=== PATIENT | male | born 1945 | race African-American/Black ===

== ENCOUNTER 2017-08-10 07:45 | Inpatient (IN) | payer OTHER, MEDICARE ==
[2017-08-10] VITALS (12 sets, daily range): BP systolic 145–170; BP diastolic 71–87
[~2017-08-10] VITALS: Ht 182.9 cm; Wt 108.9 kg
[~2017-08-10 07:45] MED LIST: NKM; NORCO 5-325 TA1 EACH ORAL
--- NOTE | 2017-08-10 07:48 | Emergency Room Report ---
History of Present Illness General Chief Complaint: Dizziness Source: Patient, EMS Present Illness HPI Patient is a 72-year-old male who presented after increased spinning sensation. Patient reported having rapid eye movements of associated dizziness which began just prior to arrival. This resolve spontaneously. The patient had associated nausea and diaphoresis. The patient reports having had no past medical history does not taking medications regularly. Patient states that he had some difficulty standing at that time.Patient was brought in by EMS. Patient denied having any chest pain or shortness of breath. Allergies: Coded Allergies: PENICILLINS (Verified Allergy, Unknown, 08/10/17) Patient History Reviewed Nursing Documentation: PMH: Agreed, PSxH: Agreed Review of Systems All Other Systems: negative except mentioned in HPI Physical Exam Vital Signs Date Time Temp Pulse Resp B/P (MAP) Pulse Ox O2 Delivery O2 Flow Rate FiO2 08/10/17 07:40 98.4 86 16 152/78 99 Room Air Sp02 EP Interpretation: reviewed, normal General Appearance: normal inspection, well appearing, no apparent distress, alert, GCS 15, non-toxic Head: atraumatic ENT: normal ENT inspection, hearing grossly normal, normal voice Neck: normal inspection, full range of motion, supple, no bony tend Respiratory: normal inspection, lungs clear, normal breath sounds, no respiratory distress, no retraction, no wheezing Cardiovascular #1: regular rate, rhythm, no edema Gastrointestinal: normal inspection, normal bowel sounds, non tender, soft, no guarding, no hernia Genitourinary: no CVA tenderness Musculoskeletal: normal inspection, back normal, normal range of motion Neurologic: normal inspection, alert, oriented x3, responsive, filters assembler III-XII nml as tested, motor strength/tone normal, DTRs symmetric, speech normal Psychiatric: normal inspection, judgement/insight normal, mood/affect normal Skin: normal inspection, normal color, no rash Medical Decision Making Diagnostic Impression: Primary Impression: Dizziness of unknown cause Additional Impression: TIA (transient ischemic attack) ER Course Patient presented for dizziness. Differential diagnosis included was not limited to pulmonary embolism, myocardial infarction, orthostatic hypotension, vertigo, vertebral basilar ischemia among others.Because of complexity of patient's case laboratory testing and imaging studies were ordered.I laboratory testing was unremarkable. Patient noted have a recurrent dizziness. Dr. Hewitt was contacted for for inpatient management. EKG interpretation normal sinus rhythm with a rate of [address] or T wave changes. Repeat EKG was unchanged.CT of head read by radiologist showed no evidence of CVA or acute hemorrhage Labs Test 08/10/17 08:10 08/10/17 10:50 White Blood Count 7.5 K/UL (4.8-10.8) Red Blood Count 5.07 M/UL (4.70-6.10) Hemoglobin 13.9 G/DL (14.2-18.0) Hematocrit 43.6 % (42.0-52.0) Mean Corpuscular Volume 86 FL (80-99) Mean Corpuscular Hemoglobin 27.5 PG (27.0-31.0) Mean Corpuscular Hemoglobin Concent 32.0 G/DL (32.0-36.0) Red Cell Distribution Width 11.8 % (11.6-14.8) Platelet Count 267 K/UL (150-450) Mean Platelet Volume 7.1 FL (6.5-10.1) Neutrophils (%) (Auto) 67.2 % (45.0-75.0) Lymphocytes (%) (Auto) 22.8 % (20.0-45.0) Monocytes (%) (Auto) 8.1 % (1.0-10.0) Eosinophils (%) (Auto) 1.1 % (0.0-3.0) Basophils (%) (Auto) 0.9 % (0.0-2.0) D-Dimer 336 ng/mL (<500) Sodium Level 139 mEQ/L (135-145) Potassium Level 4.0 mEQ/L (3.4-4.9) Chloride Level 101 mEQ/L (98-107) Carbon Dioxide Level 27 mEQ/L (20-30) Anion Gap 11 (5-15) Blood Urea Nitrogen 19 mg/dL (7-23) Creatinine 0.9 mg/dL (0.7-1.2) Estimat Glomerular Filtration Rate > 60 mL/min (>60) Glucose Level 179 mg/dL (74-106) Calcium Level 9.1 mg/dL (8.6-10.2) Total Bilirubin 0.4 mg/dL (0.0-1.2) Aspartate Amino Transf (AST/SGOT) 14 U/L (5-40) Alanine Aminotransferase (ALT/SGPT) 15 U/L (3-41) Alkaline Phosphatase 53 U/L (40-129) Troponin I < 0.30 ng/mL (<=0.30) Pro-B-Type Natriuretic Peptide 19 pg/mL (0-125) Total Protein 6.8 g/dL (6.6-8.7) Albumin 4.0 g/dL (3.5-5.2) Globulin 2.8 g/dL Albumin/Globulin Ratio 1.4 (1.0-2.7) Urine Color Pale yellow Urine Appearance Clear Urine pH 6 (4.5-8.0) Urine Specific [place] 1.020 (1.005-1.035) Urine Protein Negative (NEGATIVE) Urine Glucose (UA) Negative (NEGATIVE) Urine Ketones Negative (NEGATIVE) Urine Occult Blood 1+ (NEGATIVE) Urine Nitrite Negative (NEGATIVE) Urine Bilirubin Negative (NEGATIVE) Urine Urobilinogen Normal MG/DL (0.0-1.0) Urine Leukocyte Esterase Negative (NEGATIVE) Urine RBC 2-4 /HPF (0 - 0) Urine WBC 0-2 /HPF (0 - 0) Urine Squamous Epithelial Cells Occasional /LPF Urine Bacteria None /HPF (NONE) Urine Mucus Few /LPF (NONE/OCC) EKG Diagnostic Results Rate: normal - 76 Rhythm: NSR ST Segments: no acute changes Last Vital Signs Date Time Temp Pulse Resp B/P (MAP) Pulse Ox O2 Delivery O2 Flow Rate FiO2 08/10/17 07:40 98.4 86 16 152/78 99 Room Air Status: unchanged Disposition: ADMITTED INPATIENT Condition: Serious Pablito Hodgson Aug 10, 2017 07:48
[2017-08-10] MEDS ORDERED: Meclizine 25mg tab ORAL ONE (08:15)
[2017-08-10 08:39] LABS: BASOPHILS % (AUTO) 0.9 % (0.0-2.0); EOSINOPHILS % (AUTO) 1.1 % (0.0-3.0); LYMPHOCYTES % (AUTO) 22.8 % (20.0-45.0); MEAN CORPUSCULAR HEMOGLOBIN 27.5 PG (27.0-31.0); MEAN CORPUSCULAR VOLUME 86 FL (80-99); MEAN PLATELET VOLUME 7.1 FL (6.5-10.1); MONOCYTES % (AUTO) 8.1 % (1.0-10.0); NEUTROPHILS % (AUTO) 67.2 % (45.0-75.0); PLATELET COUNT 267 K/UL (150-450); RED BLOOD COUNT 5.07 M/UL (4.70-6.10); RED CELL DISTRIBUTION WIDTH 11.8 % (11.6-14.8); WHITE BLOOD COUNT 7.5 K/UL (4.8-10.8)
[2017-08-10 08:46] LABS: ALANINE AMINOTRANSFERASE 15 U/L (3-41); ALBUMIN/GLOBULIN RATIO 1.4 (1.0-2.7); ANION GAP 11 (5-15); ASPARTATE AMINO TRANSFERASE 14 U/L (5-40); CALCIUM 9.1 mg/dL (8.6-10.2); CARBON DIOXIDE 27 mEQ/L (20-30); CHLORIDE 101 mEQ/L (98-107); CREATININE 0.9 mg/dL (0.7-1.2); GLOMERULAR FILTRATION RATE > 60 mL/min (>60); HEMOLYSIS 4; SODIUM 139 mEQ/L (135-145); TOTAL PROTEIN 6.8 g/dL (6.6-8.7); TROPONIN I < 0.30 ng/mL (<=0.30)
--- NOTE | 2017-08-10 09:39 | Diagnostic Imaging Report ---
Indications: Is Technique: Spiral acquisitions obtained through the brain. Angled axial and coronal 5 x 5 mm slices were reconstructed. Total dose length product 141 mGycm. CTDI vol(s) 70 mGy. Dose reduction achieved using automated exposure control Comparison: None Findings: There is mild age-related enlargement of ventricles and extra axial CSF normal velásquez-white differentiation. No acute hemorrhage or edema. No mass effect or midline shift. Unusually extensive dural calcifications are seen in the forehead. The sinuses are clear. The calvarium is intact. Impression: Mild age-related changes. Negative for acute intracranial bleed or mass effect Report previously discussed with Dr. Hodgson by phone at [address] scanner at [facility] is accredited by the [employer] and the scans are performed using protocols designed to limit radiation exposure to as low as reasonably achievable to attain images of sufficient resolution adequate for diagnostic evaluation.
[2017-08-10 11:13] LABS: APPEARANCE,URINE CLEAR; KETONES,URINE NEGATIVE (NEGATIVE); LEUKOCYTE ESTERASE ,URINE NEGATIVE (NEGATIVE); NITRITE,URINE NEGATIVE (NEGATIVE); PH,URINE 6 (4.5-8.0); PROTEIN,URINE NEGATIVE (NEGATIVE); UROBILINOGEN,URINE NORMAL MG/DL (0.0-1.0)
[2017-08-10 11:25] LABS: MUCUS,URINE FEW /LPF (NONE/OCC); SQUAMOUS EPITHELIAL CELL,UR OCCASIONAL /LPF (NONE/OCC); WBC,URINE 0-2 /HPF (0 - 0)
[2017-08-10] MEDS ORDERED: Milk of Magnesia 30ml Ud ORAL PRN (11:45)
[2017-08-10] MEDS ORDERED: Norco 5mg/325mg tab ORAL PRN (11:45)
[2017-08-10] MEDS ORDERED: Mylanta II UD 30ml ORAL PRN (11:45)
[2017-08-10] MEDS ORDERED: Miralax 17gm pkt ORAL PRN (11:45)
[2017-08-10] MEDS: Aspirin Baby 81mg ORAL SCH (15:29)
--- NOTE | 2017-08-10 16:14 | Cardiology Report ---
APPROVED REPORT EXAM: Two-dimensional and M-mode echocardiogram with Doppler and color Doppler. INDICATION Dizziness and Vertigo M-Mode DIMENSIONS IVSd1.3 (0.7-1.1cm)Left Atrium (MM)4.0 (1.6-4.0cm) LVDd5.2 (3.5-5.6cm)Aortic Root2.8 (2.0-3.7cm) PWd1.1 (0.7-1.1cm)Aortic Cusp Exc.2.3 (1.5-2.0cm) LVDs2.4 (2.5-4.0cm) PWs1.8 cm Normal left ventricular chamber size, systolic function and wall motion. Left ventricular ejection fraction estimated to be 55 %. Mild left ventricular hypertrophy. Anterior Echo-free space, may be due to pericardial fat or effusion. All other cardiac chamber sizes are within normal limits. Mild focal aortic valve sclerosis with adequate cusp excursion. Mildly thickened mitral valve leaflets with normal excursion. Mild mitral annulus and aortic root calcification. Normal pulmonic valve structure. Normal tricuspid valve structure. IVC dilated at 1.8 cm with physiological collapse. A color flow and spectral Doppler study was performed and revealed: No aortic insufficiency. No mitral regurgitation. Mitral diastolic velocities suggest reduced left ventricular relaxation c/w diastolic dysfunction (Grade I). No tricuspid regurgitation. Tricuspid systolic velocities suggests peak right ventricular systolic pressure of 17 mmHg. No pulmonic regurgitation present.
--- NOTE | 2017-08-10 16:29 | History and Physical ---
History of Present Illness General Date patient seen: Aug 10, 2017 Time patient seen: 16:29 Reason for Hospitalization: Dizziness Present Illness HPI 72y/o female with pmh of BPH s/p TURP, osteoarthritis who presents with dizziness. Pt states this morning he got out of bed and then when he got back in bed he noted sensation of dizziness described as room spinning with associated blurry vision, nausea and diaphoresis. He had another episode a few min later. Pt states he had similar episodes a couple years ago but was transient and not as severe as this one. Paramedics were called and pt was brought to ER. Pt denies f/c, emesis, chest pain, SOB, syncope, LOC, abd pain, dysuria. No recent travel, trauma or sick contacts. Pt notes increased stress recently because of personal issues and knee pain. Knee pain is improving. In ED, CT head was neg. Given meclizine 25mg. Allergies: Coded Allergies: PENICILLINS (Verified Allergy, Unknown, 08/10/17) Medication History Scheduled No Known Medications* (NKM - No Known Medications*), 0 ., (Reported) Scheduled PRN Hydrocodone Bit/Acetaminophen 5-325* ([place] 5-325*), 1 TAB ORAL Q6H PRN for For Pain Patient History History Provided By: Patient, Family Member, Significant Other, Medical Record , PMD Healthcare decision maker Resuscitation status Full Code Advanced Directive on File No Past Medical/Surgical History Past Medical/Surgical History: (1) Osteoarthritis (2) BPH (benign prostatic hyperplasia) (3) S/P TURP Family History Family History: Patient reports no known family medical history. Social History Social History: (1) No significant social history Review of Systems Constitutional: Reports: sweats Eye: Reports: blurred vision ENT: Reports: no symptoms Respiratory: Reports: no symptoms Cardiovascular: Reports: no symptoms Gastrointestinal: Reports: nausea Genitourinary: Reports: no symptoms Musculoskeletal: Reports: joint pain Skin: Reports: change in hair/nails Physical Exam Physical Exam Narrative General: alert, cooperative, no distress, appears stated age Head: normocephalic, without obvious abnormality, atraumatic Eyes: conjunctivae/corneas clear. PERRL, EOM's intact Throat: lips, mucosa, and tongue normal. MMM Neck: supple, symmetrical, trachea midline, and no JVD Lungs: clear to auscultation bilaterally Heart: regular rate and rhythm, S1, S2 normal, no murmur, click, rub or gallop Abdomen: soft, non-tender, non-distended, bowel sounds normal; no masses or organomegaly Extremities: extremities normal, atraumatic, no cyanosis or edema Pulses: 2+ and symmetric Skin: skin color, texture, turgor normal; no rashes or lesions Neurologic: grossly normal, no focal deficits Last 24 Hour Vital Signs Date Time Temp Pulse Resp B/P (MAP) Pulse Ox O2 Delivery O2 Flow Rate FiO2 08/10/17 15:35 99.9 80 18 159/87 98 Room Air 08/10/17 15:10 79 08/10/17 14:15 98.4 73 16 159/78 97 Room Air 08/10/17 13:57 98.4 73 16 165/79 97 Room Air 08/10/17 12:17 82 20 166/83 98 Room Air 08/10/17 11:35 98.6 67 17 153/77 97 Room Air 08/10/17 10:06 98.4 68 17 163/74 97 Room Air 08/10/17 09:38 98.4 82 17 170/74 98 Room Air 08/10/17 09:05 98.4 80 16 162/84 100 Room Air 08/10/17 09:00 98.4 81 16 166/84 99 Room Air 08/10/17 08:55 98.4 77 17 148/71 99 Room Air 08/10/17 07:45 98.4 85 16 152/78 99 Room Air 08/10/17 07:40 98.4 86 16 152/78 99 Room Air Intake and Output 08/10/17 08/11/17 19:00 07:00 Intake Total 0 ml Output Total 380 ml Balance -380 ml Intake Oral 0 ml Output Urine Total 380 ml # Voids 2 Laboratory Tests Test 08/10/17 08:10 08/10/17 10:50 White Blood Count 7.5 K/UL (4.8-10.8) Red Blood Count 5.07 M/UL (4.70-6.10) Hemoglobin 13.9 G/DL (14.2-18.0) L Hematocrit 43.6 % (42.0-52.0) Mean Corpuscular Volume 86 FL (80-99) Mean Corpuscular Hemoglobin 27.5 PG (27.0-31.0) Mean Corpuscular Hemoglobin Concent 32.0 G/DL (32.0-36.0) Red Cell Distribution Width 11.8 % (11.6-14.8) Platelet Count 267 K/UL (150-450) Mean Platelet Volume 7.1 FL (6.5-10.1) Neutrophils (%) (Auto) 67.2 % (45.0-75.0) Lymphocytes (%) (Auto) 22.8 % (20.0-45.0) Monocytes (%) (Auto) 8.1 % (1.0-10.0) Eosinophils (%) (Auto) 1.1 % (0.0-3.0) Basophils (%) (Auto) 0.9 % (0.0-2.0) D-Dimer 336 ng/mL (<500) Sodium Level 139 mEQ/L (135-145) Potassium Level 4.0 mEQ/L (3.4-4.9) Chloride Level 101 mEQ/L (98-107) Carbon Dioxide Level 27 mEQ/L (20-30) Anion Gap 11 (5-15) Blood Urea Nitrogen 19 mg/dL (7-23) Creatinine 0.9 mg/dL (0.7-1.2) Estimat Glomerular Filtration Rate > 60 mL/min (>60) Glucose Level 179 mg/dL (74-106) H Calcium Level 9.1 mg/dL (8.6-10.2) Total Bilirubin 0.4 mg/dL (0.0-1.2) Aspartate Amino Transf (AST/SGOT) 14 U/L (5-40) Alanine Aminotransferase (ALT/SGPT) 15 U/L (3-41) Alkaline Phosphatase 53 U/L (40-129) Troponin I < 0.30 ng/mL (<=0.30) Pro-B-Type Natriuretic Peptide 19 pg/mL (0-125) Total Protein 6.8 g/dL (6.6-8.7) Albumin 4.0 g/dL (3.5-5.2) Globulin 2.8 g/dL Albumin/Globulin Ratio 1.4 (1.0-2.7) Urine Color Pale yellow Urine Appearance Clear Urine pH 6 (4.5-8.0) Urine Specific [place] 1.020 (1.005-1.035) Urine Protein Negative (NEGATIVE) Urine Glucose (UA) Negative (NEGATIVE) Urine Ketones Negative (NEGATIVE) Urine Occult Blood 1+ (NEGATIVE) H Urine Nitrite Negative (NEGATIVE) Urine Bilirubin Negative (NEGATIVE) Urine Urobilinogen Normal MG/DL (0.0-1.0) Urine Leukocyte Esterase Negative (NEGATIVE) Urine RBC 2-4 /HPF (0 - 0) H Urine WBC 0-2 /HPF (0 - 0) Urine Squamous Epithelial Cells Occasional /LPF Urine Bacteria None /HPF (NONE) Urine Mucus Few /LPF (NONE/OCC) H Height (Feet): 6 Height (Inches): 0.00 Weight (Pounds): 240 Medications Current Medications Medications (Trade) Dose Ordered Sig/Alis Route PRN Reason Start Time Stop Time Status Last Admin Dose Admin Acetaminophen (Tylenol) 650 mg Q4H PRN ORAL Mild Pain (Pain Scale 1-3) 08/10/17 11:45 09/09/17 11:44 Acetaminophen/ Hydrocodone Bitart ([place] 5/325) 1 tab Q6H PRN ORAL pain 4-10 08/10/17 11:45 08/17/17 11:44 Al Hydroxide/Mg Hydroxide (Mylanta II) 30 ml Q6H PRN ORAL dyspepsia 08/10/17 11:45 09/09/17 11:44 Aspirin (ASA) 81 mg DAILY ORAL 08/10/17 15:00 09/09/17 14:59 08/10/17 15:29 Bisacodyl (Dulcolax) 10 mg DAILYPRN PRN RECTAL Constipation 08/10/17 11:45 09/09/17 11:44 Dextrose (Dextrose 50%) STAT PRN IV Hypoglycemia 08/10/17 11:45 09/09/17 11:44 Diphenhydramine HCl (Benadryl) 25 mg Q6H PRN ORAL Itching/Pruritis 08/10/17 11:45 09/09/17 11:44 Docusate Sodium (Colace) 100 mg EVERY 12 HOURS ORAL 08/10/17 21:00 09/09/17 20:59 Heparin Sodium (Porcine) (Heparin 5000 units/ml) 5,000 units EVERY 12 HOURS SUBQ 08/10/17 21:00 09/09/17 20:59 Magnesium Hydroxide (Mom) 30 ml HSPRN PRN ORAL Constipation 08/10/17 11:45 09/09/17 11:44 Ondansetron HCl (Zofran) 4 mg Q6H PRN IVP Nausea & Vomiting 08/10/17 11:45 09/09/17 11:44 Polyethylene Glycol (Miralax) 17 gm DAILYPRN PRN ORAL Constipation 08/10/17 11:45 09/09/17 11:44 Assessment/Plan Problem List: (1) Vertigo ICD Codes: R42 - Dizziness and giddiness SNOMED: 942921079 (2) Knee pain ICD Codes: M25.569 - Pain in unspecified knee SNOMED: 66974200 Status: stable Assessment/Plan Admit inpt Neurology and cardiology consulted Monitor on tele CT head w/ age-related changes, no acute abnormality Check MRI brain, TTE, Carotid/vertebral duplex ASA 81mg daily Allow permissive hypertension Check lipid panel, TSH, A1C Pain control, bowel regimen, supportive care Meclizine 25mg q6h PRN HSQ for DVT ppx FULL ROLANDO Discussed with patient/family, RN, neurology, cardiology regarding mgmt and dispo Advanced Care Planning Note Date of Discussion: 08/10/17 A [id number] discussion with the patient and family regarding the patient's advanced care planning took place during this hospitalization on the above date. The discussion included the explanation and discussion of advance directives and associated forms/documents, as well as the patient's current code status. We also discussed at length the patient's medical conditions (both acute and chronic), general prognosis, treatment options, and goals of care. The following summarizes the discussion: Pt wishes for full resuscitation measures Advance Care Planning/Goals of Care: - Will attempt to fill out an AD and/or POLST with the patient prior to discharge, if not already completed - Continue current evaluation and management of any acute and chronic medical issues - Will continue to support the patient/family - Will continue to discuss both short- and long-term goals of care DPOA-HC/Surrogate Decision Maker: Nu Navas Code Status: Full Code AD Forms/Documents Completed: Pt had AD forms already filled A total of 31 minutes was spent on this discussion, including counseling, answering questions, and completing, if any, pertinent advanced care planning forms/documents. Marlin Quispe M.D. Aug 10, 2017 16:29
--- NOTE | 2017-08-10 18:26 | Neurology Progress Note ---
Interim History Interim History ROS Limited/Unobtainable: No Complaints: positional vertigo Objective Physical Exam Last Vital Signs Date Time Temp Pulse Resp B/P (MAP) Pulse Ox O2 Delivery O2 Flow Rate FiO2 08/10/17 16:00 86 08/10/17 15:35 99.9 18 159/87 98 Room Air Laboratory Tests Test 08/10/17 08:10 08/10/17 10:50 White Blood Count 7.5 K/UL (4.8-10.8) Red Blood Count 5.07 M/UL (4.70-6.10) Hemoglobin 13.9 G/DL (14.2-18.0) L Hematocrit 43.6 % (42.0-52.0) Mean Corpuscular Volume 86 FL (80-99) Mean Corpuscular Hemoglobin 27.5 PG (27.0-31.0) Mean Corpuscular Hemoglobin Concent 32.0 G/DL (32.0-36.0) Red Cell Distribution Width 11.8 % (11.6-14.8) Platelet Count 267 K/UL (150-450) Mean Platelet Volume 7.1 FL (6.5-10.1) Neutrophils (%) (Auto) 67.2 % (45.0-75.0) Lymphocytes (%) (Auto) 22.8 % (20.0-45.0) Monocytes (%) (Auto) 8.1 % (1.0-10.0) Eosinophils (%) (Auto) 1.1 % (0.0-3.0) Basophils (%) (Auto) 0.9 % (0.0-2.0) D-Dimer 336 ng/mL (<500) Sodium Level 139 mEQ/L (135-145) Potassium Level 4.0 mEQ/L (3.4-4.9) Chloride Level 101 mEQ/L (98-107) Carbon Dioxide Level 27 mEQ/L (20-30) Anion Gap 11 (5-15) Blood Urea Nitrogen 19 mg/dL (7-23) Creatinine 0.9 mg/dL (0.7-1.2) Estimat Glomerular Filtration Rate > 60 mL/min (>60) Glucose Level 179 mg/dL (74-106) H Calcium Level 9.1 mg/dL (8.6-10.2) Total Bilirubin 0.4 mg/dL (0.0-1.2) Aspartate Amino Transf (AST/SGOT) 14 U/L (5-40) Alanine Aminotransferase (ALT/SGPT) 15 U/L (3-41) Alkaline Phosphatase 53 U/L (40-129) Troponin I < 0.30 ng/mL (<=0.30) Pro-B-Type Natriuretic Peptide 19 pg/mL (0-125) Total Protein 6.8 g/dL (6.6-8.7) Albumin 4.0 g/dL (3.5-5.2) Globulin 2.8 g/dL Albumin/Globulin Ratio 1.4 (1.0-2.7) Urine Color Pale yellow Urine Appearance Clear Urine pH 6 (4.5-8.0) Urine Specific [place] 1.020 (1.005-1.035) Urine Protein Negative (NEGATIVE) Urine Glucose (UA) Negative (NEGATIVE) Urine Ketones Negative (NEGATIVE) Urine Occult Blood 1+ (NEGATIVE) H Urine Nitrite Negative (NEGATIVE) Urine Bilirubin Negative (NEGATIVE) Urine Urobilinogen Normal MG/DL (0.0-1.0) Urine Leukocyte Esterase Negative (NEGATIVE) Urine RBC 2-4 /HPF (0 - 0) H Urine WBC 0-2 /HPF (0 - 0) Urine Squamous Epithelial Cells Occasional /LPF Urine Bacteria None /HPF (NONE) Urine Mucus Few /LPF (NONE/OCC) H Impression/Recommendations Problems: (1) vertigo, benign,positional. (2) r/o cerebellar stroke Status: stable Recommendations MRI brain now in process. meclizine /statins/asa f/u in [place] Melendrez Aug 10, 2017 18:26
[2017-08-10] MEDS: Docusate 100mg cap ORAL SCH (21:00)
[2017-08-10] MEDS: Heparin 5000 units/ml inj SUBQ SCH (21:46)
[2017-08-11 03:54] VITALS: BP 154/75
[2017-08-11] MEDS ORDERED: Meclizine 25mg tab ORAL PRN (06:00)
[2017-08-11 07:45] LABS: BASOPHILS % (AUTO) 0.8 % (0.0-2.0); LYMPHOCYTES % (AUTO) 32.7 % (20.0-45.0); MEAN CORPUSCULAR HEMOGLOBIN 28.3 PG (27.0-31.0); MEAN CORPUSCULAR HGB CONC 32.8 G/DL (32.0-36.0); MEAN CORPUSCULAR VOLUME 86 FL (80-99); MEAN PLATELET VOLUME 7.7 FL (6.5-10.1); MONOCYTES % (AUTO) 12.3 % (1.0-10.0); NEUTROPHILS % (AUTO) 52.3 % (45.0-75.0); PLATELET COUNT 226 K/UL (150-450); RED BLOOD COUNT 4.76 M/UL (4.70-6.10); RED CELL DISTRIBUTION WIDTH 11.8 % (11.6-14.8); WHITE BLOOD COUNT 5.1 K/UL (4.8-10.8)
[2017-08-11 07:58] LABS: HEMOGLOBIN A1C 5.6 % (< 6.0)
[2017-08-11 08:00] VITALS: BP 136/81
[2017-08-11 08:12] LABS: ANION GAP 12 (5-15); CALCIUM 9.3 mg/dL (8.6-10.2); CARBON DIOXIDE 27 mEQ/L (20-30); CHLORIDE 103 mEQ/L (98-107); CHOLESTEROL 170 mg/dL (< 200); CHOLESTEROL/HDL RATIO 6.3 (3.3-4.4); CREATININE 0.9 mg/dL (0.7-1.2); GLOMERULAR FILTRATION RATE > 60 mL/min (>60); HEMOLYSIS 1; LDL CHOLESTEROL (CALC.) 115 mg/dL (60-99); MAGNESIUM 2.1 mg/dL (1.7-2.5); POTASSIUM 3.9 mEQ/L (3.4-4.9); SODIUM 142 mEQ/L (135-145)
[2017-08-11] MEDS: Aspirin Baby 81mg ORAL SCH (09:00)
[2017-08-11] MEDS: Docusate 100mg cap ORAL SCH ×2 (09:00→21:00)
[2017-08-11] MEDS: Heparin 5000 units/ml inj SUBQ SCH ×2 (09:05→21:18)
--- NOTE | 2017-08-11 10:11 | Diagnostic Imaging Report ---
Indication: DIZZY dizziness, vertigo Technique: sagittal T1 fast spin echo, axial T1 FLAIR, axial T2 FLAIR, axial T2 FS PROPELLER, axial T2* GRE, axial diffusion weighted images. ADC and exponential ADC maps generated Comparison: Brain CT 08/10/2017 Findings: No abnormal areas of restricted diffusion to suggest acute infarction. No acute hemorrhage or edema. No mass effect nor midline shift. There is minimal age-related enlargement of ventricles and extra axial CSF spaces. There are minimal nonspecific deep white matter T2 punctate hyperintensities bilaterally.. Visualized orbits and sinuses are unremarkable. Impression: Mild age-related changes Negative for acute intracranial bleed, mass effect, or infarct
--- NOTE | 2017-08-11 10:49 | Neurology Progress Note ---
Interim History Interim History ROS Limited/Unobtainable: No Complaints: positional vertigo Events: stable Objective Physical Exam Last Vital Signs Date Time Temp Pulse Resp B/P (MAP) Pulse Ox O2 Delivery O2 Flow Rate FiO2 08/11/17 08:00 98.1 66 23 136/81 99 Room Air Laboratory Tests Test 08/10/17 10:50 08/11/17 05:15 Urine Color Pale yellow Urine Appearance Clear Urine pH 6 (4.5-8.0) Urine Specific [place] 1.020 (1.005-1.035) Urine Protein Negative (NEGATIVE) Urine Glucose (UA) Negative (NEGATIVE) Urine Ketones Negative (NEGATIVE) Urine Occult Blood 1+ (NEGATIVE) H Urine Nitrite Negative (NEGATIVE) Urine Bilirubin Negative (NEGATIVE) Urine Urobilinogen Normal MG/DL (0.0-1.0) Urine Leukocyte Esterase Negative (NEGATIVE) Urine RBC 2-4 /HPF (0 - 0) H Urine WBC 0-2 /HPF (0 - 0) Urine Squamous Epithelial Cells Occasional /LPF Urine Bacteria None /HPF (NONE) Urine Mucus Few /LPF (NONE/OCC) H White Blood Count 5.1 K/UL (4.8-10.8) Red Blood Count 4.76 M/UL (4.70-6.10) Hemoglobin 13.5 G/DL (14.2-18.0) L Hematocrit 41.1 % (42.0-52.0) L Mean Corpuscular Volume 86 FL (80-99) Mean Corpuscular Hemoglobin 28.3 PG (27.0-31.0) Mean Corpuscular Hemoglobin Concent 32.8 G/DL (32.0-36.0) Red Cell Distribution Width 11.8 % (11.6-14.8) Platelet Count 226 K/UL (150-450) Mean Platelet Volume 7.7 FL (6.5-10.1) Neutrophils (%) (Auto) 52.3 % (45.0-75.0) Lymphocytes (%) (Auto) 32.7 % (20.0-45.0) Monocytes (%) (Auto) 12.3 % (1.0-10.0) H Eosinophils (%) (Auto) 2.0 % (0.0-3.0) Basophils (%) (Auto) 0.8 % (0.0-2.0) Sodium Level 142 mEQ/L (135-145) Potassium Level 3.9 mEQ/L (3.4-4.9) Chloride Level 103 mEQ/L (98-107) Carbon Dioxide Level 27 mEQ/L (20-30) Anion Gap 12 (5-15) Blood Urea Nitrogen 16 mg/dL (7-23) Creatinine 0.9 mg/dL (0.7-1.2) Estimat Glomerular Filtration Rate > 60 mL/min (>60) Glucose Level 97 mg/dL (74-106) Hemoglobin A1c 5.6 % (< 6.0) Calcium Level 9.3 mg/dL (8.6-10.2) Magnesium Level 2.1 mg/dL (1.7-2.5) Triglycerides Level 140 mg/dL (< 150) Cholesterol Level 170 mg/dL (< 200) LDL Cholesterol 115 mg/dL (60-99) H HDL Cholesterol 27 mg/dL (> 60) Cholesterol/HDL Ratio 6.3 (3.3-4.4) H Thyroid Stimulating Hormone (TSH) 1.130 uIU/mL (0.300-4.500) General: well developed, well nourished Head: normocophalic Neck: no rigidity Neurologic Exam Mental Status: awake, alert, oriented x4, normal cognition, good mathematical skills, normal recent memory, normal remote memory, preserved visuospatial function Speech: normal speech, no dysarthia Language: normal language, no aphasia Cranial Nerve II: fundus normal, visual tejada, no papilledema Cranial Nerves III, IV, : PERRLA, EOMI, pupils Cranial Nerve V: normal facial sensations, temporales function normal, masseters function normal, pterygoids function normal Cranial Nerve VII: no facial asymmetry, normal facial expressions Cranial Nerve VIII: normal hearing, no nystagmus Cranial Nerve IX: normal palate elevation, gag response Cranial Nerve X: no voice hoarseness Cranial Nerve XI: SCM symmetric, trapezii function normal Cranial Nerve XII: tongue midline, no tongue atrophy/fasciculations Motor System: normal muscle tone, strength 5/5, no involuntary movement, no muscle wasting Sensory: normal pinprick, normal light touch, normal position sense, normal graphesthesia Coordination: normal finger to nose bilaterally, normal heel to sen bilaterally, negative Romberg test Deep Tendon Reflexes: 2+ bicep (L), 2+ bicep (R), 2+ tricep (L), 2+ tricep (R) , 2+ brachioradialis (L), 2+ brachioradialis (R), 2+ knee (L), 2+ knee (R), 2+ ankle (L), 2+ ankle (R) Stance: normal Gait: stable, normal regular, heel + toe gait Impression/Recommendations Problems: (1) vertigo, benign,positional. Status: stable Recommendations MRI brain NL. sukumar //toshia dict #[id number] neuro stable [place] RAMIRES Aug 11, 2017 10:49
[2017-08-11 12:00] VITALS: BP 140/74
--- NOTE | 2017-08-11 12:54 | Cardiology Report ---
APPROVED REPORT EKG Measurement Heart [id number] Sinus rhythm with 1st degree AV block Minimal voltage criteria for LVH, may be normal variant Borderline ECG
--- NOTE | 2017-08-11 12:54 | Cardiology Report ---
APPROVED REPORT EKG Measurement Heart [id number] Sinus rhythm with 1st degree AV block Minimal voltage criteria for LVH, may be normal variant Nonspecific T wave abnormality Abnormal ECG
[2017-08-11 16:00] VITALS: BP 142/89
--- NOTE | 2017-08-11 17:07 | Cardiac Electrophysiology PN ---
Subjective Subjective Cardiac EP consult [id number] Objective Last 24 Hour Vital Signs Date Time Temp Pulse Resp B/P (MAP) Pulse Ox O2 Delivery O2 Flow Rate FiO2 08/11/17 16:00 98.1 83 21 142/89 97 Room Air 08/11/17 16:00 73 08/11/17 12:00 98.1 91 22 140/74 97 Room Air 08/11/17 12:00 87 08/11/17 08:00 98.1 66 23 136/81 99 Room Air 08/11/17 08:00 69 08/11/17 04:00 69 08/11/17 03:54 98.4 66 19 154/75 95 Room Air 08/10/17 23:55 98.5 77 21 153/80 96 Room Air 08/10/17 20:01 98.1 78 20 145/80 98 Room Air 08/10/17 20:00 76 Intake and Output 08/11/17 08/12/17 19:00 07:00 Intake Total 300 ml Balance 300 ml Intake Oral 300 ml Laboratory Tests Test 08/11/17 05:15 White Blood Count 5.1 K/UL (4.8-10.8) Red Blood Count 4.76 M/UL (4.70-6.10) Hemoglobin 13.5 G/DL (14.2-18.0) L Hematocrit 41.1 % (42.0-52.0) L Mean Corpuscular Volume 86 FL (80-99) Mean Corpuscular Hemoglobin 28.3 PG (27.0-31.0) Mean Corpuscular Hemoglobin Concent 32.8 G/DL (32.0-36.0) Red Cell Distribution Width 11.8 % (11.6-14.8) Platelet Count 226 K/UL (150-450) Mean Platelet Volume 7.7 FL (6.5-10.1) Neutrophils (%) (Auto) 52.3 % (45.0-75.0) Lymphocytes (%) (Auto) 32.7 % (20.0-45.0) Monocytes (%) (Auto) 12.3 % (1.0-10.0) H Eosinophils (%) (Auto) 2.0 % (0.0-3.0) Basophils (%) (Auto) 0.8 % (0.0-2.0) Sodium Level 142 mEQ/L (135-145) Potassium Level 3.9 mEQ/L (3.4-4.9) Chloride Level 103 mEQ/L (98-107) Carbon Dioxide Level 27 mEQ/L (20-30) Anion Gap 12 (5-15) Blood Urea Nitrogen 16 mg/dL (7-23) Creatinine 0.9 mg/dL (0.7-1.2) Estimat Glomerular Filtration Rate > 60 mL/min (>60) Glucose Level 97 mg/dL (74-106) Hemoglobin A1c 5.6 % (< 6.0) Calcium Level 9.3 mg/dL (8.6-10.2) Magnesium Level 2.1 mg/dL (1.7-2.5) Triglycerides Level 140 mg/dL (< 150) Cholesterol Level 170 mg/dL (< 200) LDL Cholesterol 115 mg/dL (60-99) H HDL Cholesterol 27 mg/dL (> 60) Cholesterol/HDL Ratio 6.3 (3.3-4.4) H Vitamin B12 Level 296 pg/mL (211-946) Vitamin D 25-Hydroxy Pending 25-Hydroxy Vitamin D2 Pending 25-Hydroxy Vitamin D3 Pending Folate Pending Thyroid Stimulating Hormone (TSH) 1.130 uIU/mL (0.300-4.500) LOKI ROJAS Aug 11, 2017 17:07
[2017-08-11] MEDS ORDERED: ASPIRIN81 MG ORAL (17:10)
[2017-08-11] MEDS ORDERED: MECLIZINE HCL25 MG ORAL (17:10)
--- NOTE | 2017-08-11 17:11 | Discharge Instructions ---
Discharge Instructions Discharge Instructions Follow up with: Follow-up with PCP or call [facility] - [phone] for follow-up Diet: 2 GM sodium (low sodium), low fat Resume Normal Activity?: Yes Activity: resume normal activities For Congestive Heart Failure Reminder Report to your physician any weight gain of 5 pounds or more in one week. Marlin Quispe M.D. Aug 11, 2017 17:11
--- NOTE | 2017-08-11 20:00 | Consultation ---
DATE OF CONSULTATION: 08/10/2017 NEUROLOGICAL CONSULTATION CONSULTING PHYSICIAN: Agusto Koo M.D. REQUESTING PHYSICIAN: Cedric Gamez M.D. History Of Present Illness: The patient is a 72-year-old man seen in neurological consultation to evaluate new onset of acute positional vertigo sensation. The patient informed me that on the day of admission, he was doing fairly well, then woke up around 6:30, went to the bathroom, but on the way back in the bed he developed acute spinning sensation, increasing with any attempt to move. He tried to get up, but he was very unsteady. There was slight nausea, but no vomiting. There was no unilateral weakness, numbness, or tingling. There was no chest pain. No palpitations. The patient became very concerned as he was having difficulty standing. Paramedics were called to the scene. At the time of arriving to the hospital, the patient felt gradual improvement. His vital signs on admission, blood pressure 152/78 and temperature 98.4 degrees. His initial workup included a CAT scan of the brain, which was negative with some mild age-related changes. He had a 2D echocardiogram revealing ejection fraction 55%, mild ventricular hypertrophy, and no mural thrombi. Laboratory work included a normal CBC study, normal D-dimer 336, urinalysis unremarkable, and chemistry panel was essentially normal except blood sugar 179, slightly elevated LDL of 115, and normal TSH and BNP. Since admission till present, the patient remained stable. He had a minor episodes of dizziness the following day, which self resolved. Past Medical History: History of osteoarthritis, benign prostatic hypertrophy status post TURP. Medications: Treatment prior to admission included [place] as needed for pain. ALLERGIES: Penicillin. FAMILY HISTORY: Noncontributory. SOCIAL HISTORY: Retired: Previously musician. Review Of Systems: At this time, the patient feels "very well." He has no complaints. Denies headache or dizziness. No chest pain or palpitations. No respiratory problems. No abdominal pain or discomfort. No urine or bowel incontinence. PHYSICAL EXAMINATION: General: A well-developed and well-nourished man, not in acute distress. VITAL SIGNS: Stable. Blood pressure 123/80 and respirations 18. HEENT: Head normocephalic. No evidence of trauma. Eyes, ears, and throat are clear. NECK: Supple. No meningeal signs. Musculoskeletal: Unremarkable. There is no deformities. Peripheral pulses 1+ and symmetric. Mental Status: Alert and oriented x3. No evidence of aphasia or apraxia. Cognitive function normal. The patient was somewhat anxious. Cranial Nerve II: Pupils both responding to light and accommodation. Extraocular movement intact. No nystagmus. CRANIAL NERVE V: Normal corneal responses. CRANIAL NERVE VII: No facial asymmetry. CRANIAL NERVE VIII: Normal hearing. No positional dizziness noted. Cranial Nerves IX Through XII: Tongue is in midline. Symmetric palate elevation. Motor Examination: Normal muscle tone and strength 5/5 in all extremities. No involuntary movement. Deep tendon reflexes 1+ and symmetric with downgoing toes on both sides. SENSORY EXAM: Normal to pinprick and light touch. GAIT: Stable. IMPRESSION: 1. Benign positional vertigo. 2. Osteoarthritis. 3. History of prostate adenoma. 4. Status post transurethral resection of prostate. Discussion: Following examination, he had a MRI of the brain without contrast revealing no intracranial abnormalities. No evidence of acute stroke was noted. Based on the patient's description and current exam, the patient has a benign positional vertigo. Now, recalling that he had a very similar, but very short period of vertigo few years ago, which resolved spontaneously. At this time, the patient is neurologically stable, observe overnight, use meclizine 12.5 mg q.i.d. p.r.n. Started on aspirin 81 mg . Thank you for allowing me to see this interesting patient in neurological consultation. Agusto Koo M.D. DR: SAVANAH JOB#: [id number] CC:
[2017-08-11 20:02] VITALS: BP 142/86
[2017-08-11] MEDS ORDERED: Atorvastatin 20mg tab ORAL SCH (21:00)
--- NOTE | 2017-08-11 23:04 | General Progress Note ---
Assessment/Plan Problem List: (1) Vertigo ICD Codes: R42 - Dizziness and giddiness SNOMED: 250574862 (2) Knee pain ICD Codes: M25.569 - Pain in unspecified knee SNOMED: 10980857 Subjective Date patient seen: Aug 11, 2017 Time patient seen: 13:00 ROS Limited/Unobtainable: No Constitutional: Reports: no symptoms HEENT: Reports: no symptoms Cardiovascular: Reports: no symptoms Respiratory: Reports: no symptoms Gastrointestinal/Abdominal: Reports: no symptoms Genitourinary: Reports: no symptoms Neurologic/Psychiatric: Reports: no symptoms Endocrine: Reports: no symptoms Hematologic/Lymphatic: Reports: no symptoms Allergies: Coded Allergies: PENICILLINS (Verified Allergy, Unknown, 08/10/17) All Systems: reviewed and negative except above Objective Last 24 Hour Vital Signs Date Time Temp Pulse Resp B/P (MAP) Pulse Ox O2 Delivery O2 Flow Rate FiO2 08/11/17 20:02 98.1 71 20 142/86 97 Room Air 08/11/17 16:00 98.1 83 21 142/89 97 Room Air 08/11/17 16:00 73 08/11/17 12:00 98.1 91 22 140/74 97 Room Air 08/11/17 12:00 87 08/11/17 08:00 98.1 66 23 136/81 99 Room Air 08/11/17 08:00 69 08/11/17 04:00 69 08/11/17 03:54 98.4 66 19 154/75 95 Room Air 08/10/17 23:55 98.5 77 21 153/80 96 Room Air Intake and Output 08/11/17 08/12/17 19:00 07:00 Intake Total 420 ml Balance 420 ml Intake Oral 420 ml Laboratory Tests 08/11/17 05:15: White Blood Count 5.1, Red Blood Count 4.76, Hemoglobin 13.5L, Hematocrit 41.1L , Mean Corpuscular Volume 86, Mean Corpuscular Hemoglobin 28.3, Mean Corpuscular Hemoglobin Concent 32.8, Red Cell Distribution Width 11.8, Platelet Count 226, Mean Platelet Volume 7.7, Neutrophils (%) (Auto) 52.3, Lymphocytes (% ) (Auto) 32.7, Monocytes (%) (Auto) 12.3H, Eosinophils (%) (Auto) 2.0, Basophils (%) (Auto) 0.8, Sodium Level 142, Potassium Level 3.9, Chloride Level 103, Carbon Dioxide Level 27, Anion Gap 12, Blood Urea Nitrogen 16, Creatinine 0.9, Estimat Glomerular Filtration Rate > 60, Glucose Level 97, Hemoglobin A1c 5.6, Calcium Level 9.3, Magnesium Level 2.1, Triglycerides Level 140, Cholesterol Level 170, LDL Cholesterol 115H, HDL Cholesterol 27, Cholesterol/ HDL Ratio 6.3H, Vitamin B12 Level 296, Vitamin D 25-Hydroxy [Pending], 25- Hydroxy Vitamin D2 [Pending], 25-Hydroxy Vitamin D3 [Pending], Folate [Pending] , Thyroid Stimulating Hormone (TSH) 1.130 Height (Feet): 6 Height (Inches): 0.00 Weight (Pounds): 240 Marlin Qiuspe M.D. Aug 11, 2017 23:04
[2017-08-11 23:49] VITALS: BP 140/77
[2017-08-12 03:52] VITALS: BP 138/77
--- NOTE | 2017-08-12 05:00 | Consultation ---
DATE OF CONSULTATION: 08/11/2017 CARDIOLOGY CONSULTATION CONSULTING PHYSICIAN: Jose A Potts M.D. REFERRING PHYSICIAN: Cedric Gamez M.D. REASON FOR CONSULTATION: Presyncope. History Of Present Illness: The patient is a very pleasant 72-year-old, gentleman with a history of a benign prostatic hypertrophy, who has undergone transurethral resection of prostate in the past as well as degenerative joint disease, presents to the hospital with episodes of dizziness and presyncope. The patient got out of bed this morning and when he got back to it, he noticed dizziness and felt the room was spinning around him. He had some blurring of the vision also. The patient had his second episode of feeling this later. The patient also had similar episodes couple of years earlier and that also was transient. At that time, the patient did not seek any medical attention. He called the paramedics and the patient was brought to the emergency room. His first set of cardiac enzymes were negative. He has underwent a lower extremity Doppler that showed no evidence of DVT and it was within normal range. His telemetry strips also showed normal sinus rhythm with no arrhythmias. PAST MEDICAL HISTORY: 1. Benign prostatic hypertrophy, status post TURP. 2. Degenerative joint disease. FAMILY HISTORY: Noncontributory. SOCIAL HISTORY: He lives at home. Does not smoke or drink alcohol. Review Of Systems: His review of systems was thoroughly performed and it was negative other than what was mentioned in the history of present illness. PHYSICAL EXAMINATION: Vital Signs: Blood pressure is 142/89, pulse is 82, respiration is 18, and he is afebrile. HEENT: His head and neck show no JVD. LUNGS: Clear. CARDIOVASCULAR: Shows regular S1 and S2 with no gallop or murmur. ABDOMEN: Soft. EXTREMITIES: Have no pitting edema. Laboratory Data: Labs show white count of 5.1, hemoglobin 13.5, hematocrit 41.1, and platelets of 226,000. Sodium 142, potassium 3.9, BUN of 16, creatinine 0.9, and glucose of 97. Troponin is negative. BNP is only 19. LDL is 115. Assessment And Plan: Presyncope. Etiology is not clear at this time. It could be vertigo. The patient did not have arrhythmia on telemetry. Echocardiogram showed normal left ventricular systolic function. The patient's first set of cardiac enzymes are negative. We will repeat the cardiac enzymes, watch the patient on telemetry, and check orthostatic vital signs. The patient has also been evaluated by Dr. Koo from neurologic perspective. The patient underwent MRI of the brain that was normal. I have started him on meclizine and aspirin. Thank you very much Dr. Gamez for allowing me to participate in the care of this patient. Please do not hesitate to contact me for any questions regarding my evaluation. Jose A Potts M.D. DR: SABRINA JOB#: [id number] CC:
[2017-08-12 08:00] VITALS: BP 140/73
[2017-08-12] MEDS: Aspirin Baby 81mg ORAL SCH (09:53)
[2017-08-12] MEDS: Docusate 100mg cap ORAL SCH (09:55)
[2017-08-12] MEDS: Heparin 5000 units/ml inj SUBQ SCH (09:55)
[2017-08-12] MEDS ORDERED: RESTORIL7.5 MG ORAL (11:38)
[2017-08-12] MEDS ORDERED: LIPITOR20 MG ORAL (11:38)
--- NOTE | 2017-08-12 11:46 | Discharge Summary ---
Discharge Summary Hospital Course Date of Admission Aug 10, 2017 at 09:30 Date of Discharge 08/12/17 Admitting Diagnosis transient ischemic attack JO Hodgson is a 72 year old male who was admitted on Aug 10, 2017 at 09: 30 for Transient Ischemic Attack Discharge Discharge Disposition Patient was discharged to Discharge Diagnoses: Discharge Instructions Discharge Instructions Follow up with: Follow-up with PCP or call [facility] [phone] for follow-up Activity: resume normal activities Marlin Quispe M.D. Aug 12, 2017 11:46
[2017-08-12 12:00] VITALS: BP 162/95
[2017-08-12] MEDS ORDERED: HydrALAZINE 10mg Tab ORAL ONE (12:45)
--- NOTE | 2017-08-12 12:58 | Diagnostic Imaging Report ---
APPROVED REPORT CPT Code: 45566 Vascular Symptoms Dizziness and Vertigo Doppler Spectral Velocity Analysis RightLeft artery. The Doppler spectral flow analysis indicates the degree of stenosis is minimal (10%) in the common carotid artery, mild (30%) in the internal carotid artery, and mild (30-40%) in the external carotid artery. VERTEBRAL- The vertebral artery is patent, without evidence of stenosis or steal. artery. The Doppler spectral flow analysis indicates the degree of stenosis is minimal (10%) in the common carotid artery, minimal (20%) in the internal carotid artery, and mild (30-50%) in the external carotid artery. VERTEBRAL- The vertebral artery is patent, without evidence of stenosis or steal.
[2017-08-12 13:00] VITALS: BP 162/95
--- NOTE | 2017-08-14 22:12 | Diagnostic Imaging Report ---
APPROVED REPORT CPT Code: 79423 Present Symptoms Comments: Pain BILATERAL: Imaging reveals a patent deep venous system bilaterally. There is no evidence of thrombus within the femoral, popliteal or tibial segments. The greater saphenous veins are also within normal limits. Doppler indicates normal spontaneous flow within these segments.
[2017-08-15 15:09] LABS: VITAMIN D 25-OH TOTAL 16 ng/mL (.)
== END 2017-08-12 13:20 | disposition home or self-care (01) | DRG 149 ==
LOC: EDBD 07:45 → EMR 08:39 → 2W 09:30 → EDBEDREQ 13:57 → 2W 15:22 → 2E 19:52
DX: H81.10 Benign paroxysmal vertigo, unspecified ear (principal); M19.90 Unspecified osteoarthritis, unspecified site; M25.569 Pain in unspecified knee; Z88.0 Allergy status to penicillin
CPT/HCPCS: 36415; 70450; 70551; 80048; 80053; 80061; 81001; 82306; 82607; 82746; 82962; 83036; 83735; 83880; 84443; 84484; 85025; 85379; 93005; 93306; 93880; 93970; 99285

== ENCOUNTER 2019-05-31 10:17 | Emergency (ER) | payer MEDICARE, OTHER ==
[~2019-05-31] VITALS: Ht 175.3 cm; Wt 98.4 kg
[~2019-05-31 10:17] MED LIST changes: +ASPIRIN81 MG ORAL; +LIPITOR20 MG ORAL; +MECLIZINE HCL25 MG ORAL; +RESTORIL7.5 MG ORAL
[2019-05-31 10:28] VITALS: BP 156/72
--- NOTE | 2019-05-31 10:51 | NUR ---
ED Nurse Note: Pt. AAox4. ambulatory. Pt. walked in to ED from home due to L hand laceration. Per pt. he was carrying a piece of a broken toilet seat and accidentally slid off his hand causing the laceration
[2019-05-31] MEDS ORDERED: Tetanus/Diptheria/Pertussis IM ONE (11:00)
[2019-05-31] MEDS ORDERED: Bacitracin Oint UD TOPIC ONE (11:45)
[2019-05-31] MEDS ORDERED: BACITRACIN15 GM TOPIC (12:03)
[2019-05-31] MEDS ORDERED: CEPHALEXIN500 MG ORAL (12:03)
--- NOTE | 2019-05-31 12:18 | NUR ---
ED Nurse Note: Patient is be discharged from medical care. Steffanie, EMT tech applied clean, dry dressing over the affected finger. Patient tolerated the procedure without difficulty. D/C instruction and prescription given to patient and family member. Ambulated out with steady gait with all his belongings.
--- NOTE | 2019-05-31 15:17 | Emergency Room Report ---
History of Present Illness General Chief Complaint: Laceration Source: Patient Present Illness HPI 74-year-old male presents ED for evaluation. Patient states that he cut his left hand on a shard of broken toilet construction site. Tetanus unknown. States initially there was a lot of bleeding but has since resolved. Denies any tingling sensation. Denies any weakness. Denies any other injuries. No other aggravating relieving factors. Denies any other associated symptoms Allergies: Coded Allergies: PENICILLINS (Verified Allergy, Unknown, 08/10/17) Patient History Past Medical History: HTN Past Surgical History: none Pertinent Family History: none Social History: Denies: smoking, alcohol use, drug use Immunizations: UTD Reviewed Nursing Documentation: PMH: Agreed; PSxH: Agreed Nursing Documentation-PMH Hx Cardiac Problems: Yes Hx Hypertension: Yes Hx Cancer: No Hx Gastrointestinal Problems: No Hx Neurological Problems: No Review of Systems All Other Systems: negative except mentioned in HPI Physical Exam Vital Signs Date Time Temp Pulse Resp B/P (MAP) Pulse Ox O2 Delivery O2 Flow Rate FiO2 05/31/19 10:28 97.5 84 15 156/72 95 Room Air Sp02 EP Interpretation: reviewed, normal General Appearance: no apparent distress, alert, GCS 15, non-toxic Head: normocephalic Eyes: bilateral eye normal inspection, bilateral eye PERRL ENT: normal ENT inspection Neck: normal inspection Respiratory: normal inspection Cardiovascular #1: normal inspection Gastrointestinal: normal inspection Rectal: deferred Genitourinary: no CVA tenderness Musculoskeletal: back normal, gait/station normal, normal range of motion, non- tender Neurologic: alert, oriented x3, responsive, motor strength/tone normal, sensory intact, speech normal Psychiatric: normal inspection Skin: laceration - 2cm laceration base of L thumb. no tendon involvement Lymphatic: normal inspection Procedures Laceration/Wound Repair Laceration/Wound Repair : Consent: Verbal Wound Location: upper extremity Wound's Depth, Shape: linear Wound Explored: clean Betadine Prep?: Yes Anesthesia: 1% Lidocaine Wound Debrided: minimal Wound Repaired With: sutures Suture Size/Type: 5:0, proline Layer Closure?: No Sterile Dressing Applied?: Yes Splint Applied?: No Sling Applied?: No Patient Tolerated: Well Complications: None Medical Decision Making Diagnostic Impression: Primary Impression: Laceration ER Course Hospital Course 74 yo M presents to ED with laceration L hand Clinical course Patient placed on stretcher. After initial history and physical I ordered tetanus shot. wound irrigated. Anesthesia provided with lidocaine. Laceration repaired w/o complication. Dressing applied. Discussed findings with patient. Safe for discharge with close outpatient follow-up. Wound care instructions given. States he has a PMD Diagnosis - laceration Stable and discharged to home with prescription for bacitracin, keflex. wound Care instructions given. Followup with PMD in 10-12 days for suture removal. Return to ED if any signs of infection develop Last Vital Signs Date Time Temp Pulse Resp B/P (MAP) Pulse Ox O2 Delivery O2 Flow Rate FiO2 05/31/19 10:28 97.5 84 15 156/72 (100) 95 Room Air Status: improved Disposition: HOME, SELF-CARE Condition: Stable Scripts Bacitracin (Bacitracin) 28.4 Gm Oint...g. 1 APPLIC TOPIC THREE TIMES A DAY, #28.4 GM Prov: Karthik Quiroz MD 05/31/19 Cephalexin* (KEFLEX*) 500 Mg Capsule 500 MG ORAL EVERY 6 HOURS for 7 Days, CAP Prov: Karthik Quiroz MD 05/31/19 Referrals: NON PHYSICIAN (PCP) Patient Instructions: Laceration Care, Adult Additional Instructions: have sutures removed in 10-12 days. return to ED if any signs of infection develop Karthik Quiroz MD May 31, 2019 15:17
== END 2019-05-31 12:18 | disposition home or self-care (01) ==
LOC: EMR 12:00
DX: S61.412A Laceration without foreign body of left hand, initial encounter (principal); W45.8XXA Other foreign body or object entering through skin, initial encounter; Y92.9 Unspecified place or not applicable; Z23 Encounter for immunization; I10 Essential (primary) hypertension; Z88.0 Allergy status to penicillin
CPT/HCPCS: 90471; 90715; 99283

== ENCOUNTER 2019-06-12 07:33 | Emergency (ER) | payer OTHER ==
[~2019-06-12] VITALS: Ht 175.3 cm; Wt 98.9 kg
[~2019-06-12 07:33] MED LIST changes: +BACITRACIN15 GM TOPIC; +CEPHALEXIN500 MG ORAL
[2019-06-12 07:40] VITALS: BP 138/75
--- NOTE | 2019-06-12 07:42 | NUR ---
ED Nurse Note: Patient walked in to ER to remove sutures. The site clean and no s/s of infection noted. Patient alert and oriented x4 and ambulatory. skin clean and intact. calm and cooperative.
[2019-06-12] MEDS ORDERED: FLOMAX0.4 MG ORAL (07:46)
--- NOTE | 2019-06-12 07:47 | Emergency Room Report ---
History of Present Illness General Chief Complaint: Wound Recheck/Suture Removal Source: Patient Present Illness HPI Patient is a 74-year-old male presented for suture removal. Patient had recent laceration to his left thumb. Patient denies any current complaints. He states his been able to move his thumb well. He denies any fever. He states that there is some slight area of numbness to his ulnar side of the thumb. He denies any change in movement. He denies any significant pain. He states he is been able to use his thumb well. Allergies: Coded Allergies: PENICILLINS (Verified Allergy, Unknown, 08/10/17) Patient History Past Medical History: see triage record Reviewed Nursing Documentation: PMH: Agreed; PSxH: Agreed Nursing Documentation-PMH Past Medical History: No History, Except For Hx Cardiac Problems: No Hx Hypertension: Yes Hx Cancer: No Hx Gastrointestinal Problems: No Hx Neurological Problems: No Review of Systems All Other Systems: negative except mentioned in HPI Physical Exam Vital Signs Date Time Temp Pulse Resp B/P (MAP) Pulse Ox O2 Delivery O2 Flow Rate FiO2 06/12/19 07:36 98.1 80 16 138/75 (96) 98 Room Air General Appearance: well appearing, no apparent distress, alert, GCS 15 Head: normocephalic, atraumatic ENT: hearing grossly normal, normal voice Neck: full range of motion, supple Respiratory: lungs clear, no respiratory distress, speaking full sentences Cardiovascular #1: normal inspection Neurologic: normal inspection, alert, oriented x3, normal gait Psychiatric: normal inspection, mood/affect normal Skin: no rash, other - healed wound Medical Decision Making Diagnostic Impression: Primary Impression: Encounter for dressing change or suture removal ER Course Patient presented for suture removal. Differential diagnosis include was not limited to cellulitis, healed wound, abscess among others. Patient has a benign exam and does not appear to require any further imaging or laboratory testing at this time. Patient was noted to have healed wound which does not appear to be causing the patient any significant difficulty at this time. Sutures were removed. Patient tolerated this well. He is to follow-up as needed. Last Vital Signs Date Time Temp Pulse Resp B/P (MAP) Pulse Ox O2 Delivery O2 Flow Rate FiO2 06/12/19 07:40 98.1 80 16 138/75 98 Room Air Status: improved Disposition: HOME, SELF-CARE Condition: Stable Patient Instructions: Suture Removal, Care After Additional Instructions: Return if any concerns. Pablito Hodgson MD Jun 12, 2019 07:47
--- NOTE | 2019-06-12 07:50 | NUR ---
ER DISCHARGE NOTE: Patient is cleared to be discharged per ERMD after suture removed, pt is aox4, on room air, with stable vital signs. pt was given dc instructions, pt was able to verbalize understanding, pt id band removed. pt is able to ambulate with steady gait. pt took all belongings.
== END 2019-06-12 07:50 | disposition home or self-care (01) ==
LOC: EMR 07:40
DX: Z48.02 Encounter for removal of sutures (principal); I10 Essential (primary) hypertension; Z88.0 Allergy status to penicillin
CPT/HCPCS: 99281